=== PATIENT | female | born 1980 | race Caucasian/White ===

== ENCOUNTER 2018-02-18 07:01 | Emergency (ER) | payer OTHER ==
[2018-02-18 07:36] VITALS: BP 136/94
--- NOTE | 2018-02-18 07:46 | UC ---
Nay Gale Emily, scribed for Ralph Chapman MD on 02/18/18 at 0725 . Epistaxis Nasal HPI - HPI Summary HPI Summary: In room note: This patient is a 37 year old F presenting to convenient care with a chief complaint of sinus pressure on the night of 02/15/2018. The patient rates the pain 4/10 in severity. Symptoms aggravated by nothing. Symptoms alleviated by nothing. Patient reports eye drainage, red eyes, R ear pain, generalized headache, waxing and waning swollen gland on the back of the head, and cough. Patient denies fever, nausea, and vomiting. Pt denies sick contacts at home. Pt reports a history of preeclampsia. MD: Vital signs stable. Pulse ox 99. Blood pressure noted at 146/101, on no antihypertensive medications. Visit history noncontributory. 4/10 sinus discomfort. Nurse's: Sinus pressure, lump in back of head, pressure back of head, eyes draining, ear pain R - History of Current Complaint Chief Complaint: UCRespiratory Stated Complaint: SINUS COMPLAINT Time Seen by Provider: 02/18/18 07:08 Hx Obtained From: Patient Hx Last Menstrual Period: 02/17/18 ?: No Onset/Duration: Sudden Onset, Lasting Days, Still Present Timing: Constant Severity Initially: Moderate Severity Currently: Moderate Pain Intensity: 4 Pain Scale Used: 0-10 Numeric Aggravating Factor(s): Nothing Alleviating Factor(s): Nothing Associated Signs And Symptoms: Positive: Sinus Pain - Allergies/Home Medications Allergies/Adverse Reactions: Allergies Allergy/AdvReac Type Severity Reaction Status Date / Time No Known Allergies Allergy Verified 02/18/18 07:12 Home Medications: Home Medications D-Methorphan/PE/Acetaminophen [Gnp Day Time Cold/Flu Rel] 1 liq PO DAILY MDD cold 02/18/18 [History Confirmed 02/18/18] PMH/Surg Hx/FS Hx/Imm Hx Previously Healthy: No Endocrine History: Other Other Endocrine History: Negative diabetes Cardiovascular History: Other Other Cardiovascular History: Negative HTN - Surgical History Surgical History: Yes Surgery Procedure, Year, and Place: fx leg repair - Family History Known Family History: Positive: Hypertension, Diabetes - Social History Occupation: Employed Full-time Lives: With Family Alcohol Use: Rare Substance Use Type: None Smoking Status (MU): Former Smoker - Immunization History Most Recent Influenza Vaccination: 07/14/15 Most Recent Tetanus Shot: 10/19/15 Most Recent Pneumonia Vaccination: none Review of Systems Constitutional: Other - Negative fever Eyes: Drainage, Eye Redness ENT: Ear Ache, Sinus Pain/Tenderness Respiratory: Cough Gastrointestinal: Other - Negative nausea and vomiting Musculoskeletal: Other: - Positive swollen gland on the back of the head Neurological: Headache All Other Systems Reviewed And Are Negative: Yes Physical Exam - Summary Physical Exam Summary: Appearance: The patient is well-appearing, is in no pain distress, and is well- nourished. Eyes: BOTH EYES HAVE MILD SCLERAL INJECTION ENT: The hearing is grossly normal and the TMs are normal. There is no muffled or hoarse voice. MILD ERYTHEMA OF THE PHARYNX WITH POSTERIOR LYMPH PATCHES NOTED Neck: The neck is supple. SLIGHTLY SWOLLEN LYMPH NODE IN RIGHT POSTERIOR CERVICAL REGION Respiratory: The chest is nontender. The lungs are clear, there are normal breath sounds, and there is no respiratory distress. Cardiovascular: Heart is regular rate and rhythm. There is no murmur. Abdomen: The abdomen is soft and nontender. There is no organomegaly. Bowel sounds: present Musculoskeletal: Strength is intact. The patient moves all extremities. Neurological: The patient is alert. Psychological: The patient displays age appropriate behavior Skin: Negative for rashes. Triage Information Reviewed: Yes Vital Signs: Initial Vital Signs Temp 97.2 F 02/18/18 07:07 Pulse 90 02/18/18 07:07 Resp 16 02/18/18 07:07 BP 146/101 02/18/18 07:07 Pulse Ox 99 02/18/18 07:07 Vital Signs Reviewed: Yes ENT: Positive: Sinus tenderness - tender right maxillary sinus to percussion Epistaxis Nasal Course/Dx - Course Course Of Treatment: Hypertensive BP reading 146/101; patient referred to PCP within 1 day - 4 weeks for follow up. Medications have been included in the original chart and reviewed. 37 year old female with right maxillary sinusitis, congestion, bilateral conjunctivitis, and elevated blood pressure. I will give her amoxicillin and eye drops, as well as follow up for primary care, which she does not have. - Differential Dx/Diagnosis Differential Diagnosis/HQI/PQRI: Sinusitis, Other - URI Provider Diagnoses: Sinusitis. Conjunctivitis. Elevated BP. Discharge - Sign-Out/Discharge Documenting (check all that apply): Discharge/Admit/Transfer - Discharge Plan Condition: Stable Disposition: HOME Prescriptions: Amoxicillin PO (*) [Amoxicillin 875 MG (*)] 875 mg PO BID #10 tab MDD 2 Polymyx/Trimethoprim OPTH* [Polytrim OPHTH*] 2 drop BOTH EYES TID #1 btl Patient Education Materials: Sinusitis (ED), Hypertension (ED), Conjunctivitis (ED) Referrals: No Primary Care Phys,NOPCP [Primary Care Provider] - Additional Instructions: PLEASE SEEK CARE AT THE EMERGENCY DEPARTMENT IF THE SYMPTOMS WORSEN OR IF NEW SYMPTOMS DEVELOP. Establish with a new primary care provider and follow-up within 4 weeks for blood pressure readings and further evaluation. If you cant find a provider, try to check your blood pressure on your own and see if its above 120/80. If so , follow up for further evaluation and treatment. WE DISCUSSED: 1. You have sinusitis, conjunctivitis, and elevated blood pressure. 2. Begin amoxicillin and eye drops for 5 days. 3. Recheck blood pressure with primary care physician. 4. Follow up in 7 days if you have any temperature, or other symptoms. 5. Re check at any time for increased pain, temperature, difficult breathing, swallowing or seeing. 6. Stop any decongestant medication. Plain cough syrup and ibuprofen or acetaminophen is fine. - Billing Disposition and Condition Condition: STABLE Disposition: HOME The documentation as recorded by the Nay kelley Emily accurately reflects the service I personally performed and the decisions made by me, Ralph Chapman MD.
== END 2018-02-18 07:48 | disposition home or self-care (01) ==
LOC: UCEAST 07:01
DX: J32.0 Chronic maxillary sinusitis (principal); H10.9 Unspecified conjunctivitis; R03.0 Elevated blood-pressure reading, without diagnosis of hypertension; R59.0 Localized enlarged lymph nodes; J39.2 Other diseases of pharynx; H92.02 Otalgia, left ear; Z87.891 Personal history of nicotine dependence
CPT/HCPCS: 99212; G0463